=== PATIENT | female | born 1980 | race Caucasian/White ===

== ENCOUNTER 2017-01-20 12:46 | Outpatient (CLI) | payer OTHER ==
[~2017-01-20] VITALS: Ht 152.4 cm; Wt 95.0 kg
[2017-01-20 13:09] VITALS: BP 129/66; PULSE 87
[2017-01-20] MEDS ORDERED: PRENAT PO (13:10)
[2017-01-20 13:35] LABS: ADD UMIC YES; URINE BILIRUBIN (Dip) NEGATIVE (NEGATIVE); URINE BLOOD (Dip) TRACE (NEGATIVE); URINE COLOR LT. YELLOW (YELLOW); URINE GLUCOSE (Dip) NEGATIVE (NEGATIVE); URINE KETONES (Dip) NEGATIVE (NEGATIVE); URINE LEUKOCYTE ESTERASE (Dip) TRACE (NEGATIVE); URINE NITRITE (Dip) NEGATIVE (NEGATIVE); URINE TOTAL PROTEIN (Dip) NEGATIVE (NEGATIVE); URINE UROBILINOGEN (Dip) 0.2 E.U./dL (0.1-1.0)
[2017-01-20 13:45] LABS: BACTERIA,URINE MODERATE
[2017-01-20] MEDS ORDERED: BETAMET NA PHOS/AC(6 MG/ML) 5ML INJ IM ONE (14:00)
--- NOTE | 2017-01-20 14:55 | RADRPT ---
AMENDMENT: 01/20/2017 2:55:29 PM Dariusz Garcia M.D PROCEDURE: US OB. CLINICAL INDICATION: labor TECHNIQUE: Multiple sonographic images of the pelvis were obtained. The images were reviewed on a PACS workstation. COMPARISON: No prior studies are available for comparison. FINDINGS: There is a single live intrauterine . cardiac activity is identified at a rate of 13 3 beats per minute. presentation is cephalic. Placenta is anterior grade II. There is a questionable nuchal cord . Biophysical profile score is as follows: Breathing 2 Movements 2 Tone 2 Fluid volume 2 Amniotic fluid index = 8.3 cm Total biophysical profile score = 8/8 IMPRESSION: Biophysical profile score = 8/8 Questionable nuchal cord RPTAT: HH Physician Florecita Date Time Electronically viewed and signed by Physician Florecita on 01/20/2017 14:55 /
--- NOTE | 2017-01-20 15:20 | QN ---
Documentation Comment 36-year-old with IUP at 36 weeks presented with complaint of vaginal pressure. She feels some irregular uterine contractions and [place]. She denies any vaginal bleeding, decreased movement. Patient reports history of delivery 2 at 36 weeks in prior pregnancies. She was noted to be 1 cm dilated/80-3. Intact in vertex presentation Physical examination: General appearance: Alert and oriented 4 patient does not appear to be in any acute distress. Abdomen: Soft, gravid, fundal height consistent with gestational age. No rebound tenderness, no guarding no rigidity no evidence of acute abdomen. NST: Category 1. Some irregular contractions seen Observation after 1-2 hours did not show any cervical change. MENDMENT: 01/20/2017 2:55:29 PM Dariusz Garcia M.D PROCEDURE: US OB. CLINICAL INDICATION: labor TECHNIQUE: Multiple sonographic images of the pelvis were obtained. The images were reviewed on a PACS workstation. COMPARISON: No prior studies are available for comparison. FINDINGS: There is a single live intrauterine . cardiac activity is identified at a rate of 133 beats per minute. presentation is cephalic. Placenta is anterior grade II. There is a questionable nuchal cord. Biophysical profile score is as follows: Breathing 2 Movements 2 Tone 2 Fluid volume 2 Amniotic fluid index = 8.3 cm Total biophysical profile score = 8/8 IMPRESSION: Biophysical profile score = 8/8 Questionable nuchal cord RPTAT: Assessment: IUP at 36 weeks False labor pain No cervical change during observation History of labor at 36 weeks 2 Due to increased risk of labor in current as well at less than 37 weeks discussed with the patient about steroid Desires to proceed Received first dose today Adequate hydration discussed Discharge home today Follow-up with triage tomorrow for the second dose of steroid Strict labor precaution and kick count discussed Follow-up with OB clinic in 2-3 days or sooner as needed any other complaint discussed Return to triage if she has worsening of abdominal pain, leaking of fluid, vaginal bleeding decreased movement , or any other concerns DESIRE TALLEY MD January 20, 2017 15:20
--- NOTE | 2017-01-20 15:33 | TRIAGE ---
OB Triage Datetime Report Generated by CPN: 01/20/2017 15:32 Datetime: 01/20/2017 15:08 Vaginal Exam Dilatation (cms): 1.0 Effacement (%): 80 Station: -3 Exam By: S. HERI RN Datetime: 01/20/2017 13:54 Labor Evaluation Frequency: 9-11 Monitor Mode: External Duration (sec)2399: 50-70 Pattern: Normal: <= 5 Contractions in 10 Minutes Resting Tone [place]: Relaxed Heart Rate FHR Baseline Rate: 135 Monitor Mode: External US Variability: Moderate 6-25 bpm Accelerations: 10X10 Decelerations: None Category: Category I Pain Assessment Pain Scale: 5 Pain Presence: Intermittent Pain Type: Pressure Pain Goal: 3 Pain Relief Measures: Comfort Measures Datetime: 01/20/2017 13:42 Stage of : OB Triage Datetime: 01/20/2017 13:05 Stage of : OB Triage Assessment Type: Triage Maternal Assessment Level of Consciousness: Fully Conscious DTR's/Clonus: DTRs 2+; No Clonus Headache: Denies Blurred Vision: No Respiratory Effort: Unlabored; Regular Rhythm; Equal Expansion Breath Sounds, Left: Clear and Equal Breath Sounds, Right: Clear and Equal Nausea/Vomiting: Denies RUQ Epigastric Pain: Denies Facial Edema: None Temperature Route: Axillary Fall Risk Assessment History of Falling: (0) No Secondary Diagnosis: (0) No Ambulatory Aid: (0) Bedrest/Nurse Assist IV Therapy: (0) No Gait: (0) Normal/Bedrest/Immobile Mental Status: (0) Oriented to Own Ability Fall Score: 0 Fall Risk Score Definition: No Risk: No action required Labor Evaluation Frequency: 0 Monitor Mode: External Resting Tone [place]: Relaxed Heart Rate FHR Baseline Rate: 130 Monitor Mode: External US Variability: Moderate 6-25 bpm Decelerations: None Category: Category II Pain Assessment Pain Scale: 5 Pain Presence: Intermittent Pain Type: Pressure Pain Location: Perineum Pain Goal: 3 Pain Relief Measures: Comfort Measures Datetime: 01/20/2017 13:04 EGA: 36.0 Datetime: 01/20/2017 13:00 Time of Arrival: 01/20/2017 12:40 Arrived By: Ambulatory Arrived From: Home Chief Complaint: C/O VAG PRESSURE, DENIES LEAKING OR BLEEDING Movement: Present Contractions: Denies/Absent Rupture of Membranes: Denies Vaginal Discharge: Present Recent Sexual Intercouse: Denies Abdominal Trauma: Not Applicable Time Provider Notified: 01/20/2017 15:16 Provider Notified: Dr. Smith Initial Plan: MONITOR,
== END 2017-01-20 15:35 | disposition home or self-care (01) ==
LOC: OBT 12:46 → L-D 12:48 → OBT 15:35
PROVIDERS: ATTEND Obstetrics & Gynecology
DX: O60.03 Preterm labor without delivery, third trimester (principal); O09.523 Supervision of elderly multigravida, third trimester; Z3A.36 36 weeks gestation of pregnancy
CPT/HCPCS: 76818; 81001; 96372; J0702; Z7500; G0463

== ENCOUNTER 2017-01-21 13:56 | Outpatient (CLI) | payer OTHER ==
[~2017-01-21] VITALS: Ht 152.4 cm; Wt 96.0 kg
[~2017-01-21 13:56] MED LIST: PRENAT PO
[2017-01-21 14:01] VITALS: Ht 152.4 cm; Wt 96.0 kg
[2017-01-21 14:03] VITALS: BP 128/60
[2017-01-21] MEDS ORDERED: BETAMET NA PHOS/AC(6 MG/ML) 5ML INJ IM ONE (14:30)
--- NOTE | 2017-01-21 14:46 | RADRPT ---
PROCEDURE: Biophysical profile CLINICAL INDICATION: distress TECHNIQUE: Color and horton-scale ultrasound images of an intrauterine gestation were obtained. COMPARISON: January 20, 2017 FINDINGS: A single live intrauterine gestation is identified in is not 5 position with an estimated hear t rate of 129 beats per minute. The placenta is located anterior. The cervix is obscured by head s hadows. No evidence of abruption identified. DEISY is 4.3 cm. movement 2/2. tone 2/2. breathing movement 2/2. Qualitative AFV 0/2 Total biophysical profile 01/28 IMPRESSION: 01/28 biophysical profile. Oligohydramnios is noted with an DEISY of 4.3 cm. RPTAT: AA .Charli Malhotra MD, Date Time Electronically viewed and signed by .Charli Malhotra MD, on 01/21/2017 14:45 .P/
[2017-01-21] MEDS: LACTATED RINGER'S 1,000 ML IV PRN ×2 (15:28→16:33)
--- NOTE | 2017-01-21 17:43 | RADRPT ---
PROCEDURE: US OB. CLINICAL INDICATION: Low DEISY TECHNIQUE: Transabdominal views of the pelvis are available for review. COMPARISON: Biophysical profile study from the same date FINDINGS: There is a single intrauterine gestation in a vertex position. The heart rate is present at 128 bpm. The placenta is anterior. There is no evidence of placenta previa or a placental abruption. The DEISY measures 6.3 cm. RPTAT: AA IMPRESSION: Oligohydramnios with an DEISY of 6.3 cm. Physician Jay Date Time Electronically viewed and signed by Damian Alvarenga Physician on 01/21/2017 17:43 RA/
--- NOTE | 2017-01-22 09:37 | CONS ---
Date/Time of Note Date/Time of Note DATE: 01/22/17 TIME: 09:06 Consultation Date/Type/Reason Admit Date/Time January OB triage consult: Initial Consult Date This patient is a36 years old G 5, P 4 with EDC of 01/22/2017 which makes her 36 1/7 weeks . She was seen yesterday in triage for oligohydramnios and occasional contractions. She was given a dose of Beta Methasone and discharged home with instruction to do kick count drink plenty of fluid. Today on ultrasound study her DEISY was 4.3 cm, with BPP 6/8. She also indicated that she fell down at home yesterday, but without any injury. On exam her vital signs were WNL.: BP: 128/60 ,puls: 83, Respiration: 16, and temperature 98.0. she had very scattered contractions, FHT reactive, with good variability, and no decels. Current Medications Medications (Trade) Dose Ordered Sig/Quynh Route PRN Reason Start Time Stop Time Status Last Admin Dose Admin Betamethasone Acet/Betameth SodPhos 12 mg 12 mg ONCE ONCE IM 01/21/17 14:30 01/21/17 14:31 DC 01/21/17 14:48 12 MG Lactated Ringer's (Lr) 1,000 ml @ 1,000 mls/hr Q1H PRN IV IV HYDRATION OLIGOHYDRAMNIOS 01/21/17 15:30 01/21/17 18:39 DC 01/21/17 16:33 1,000 MLS/HR 24 HR Interval Summary Constitutional: No chills, No diaphoresis, No disoriented, No febrile, No improved, No no complaints, No other, No poor po, No requiring IVF, No requiring O2 Detailed Summary Eyes: No discharge, No no complaints, No other, No pain, No redness, No visual change ENT: No bleeding, No congestion, No discharge, No dysphagia, No no complaints, No other, No pain, No sore throat Respiratory: No cough, No no complaints, No other, No pain, No pleuritic pain, No shortness of breath, No sputum, No wheezing Cardiovascular: No chest pain, No edema, No lightheadedness, No no complaints, No orthopenea, No other, No palpitations, No paroxysmal nocturnal dyspnea Gastrointestinal: No blood, No constipation, No decreased appetite, No diarrhea , No flatus, No nausea, No no complaints, No other, No pain, No passing stool, No vomiting Genitourinary: other, No bleeding, No discharge, No dysuria, No flank pain, No hematuria, No no complaints Musculoskeletal: No back pain, No bone/joint pain, No neck pain, No no complaints, No other, No restricted range of motion, No swelling Skin: No bruising, No erythema, No laceration, No no complaints, No other, No pruritis, No rash, No skin lesions Neurologic: No confusion, No dizziness, No focal-weakness, No headache, No no complaints, No other, No seizure, No syncope Additional Comments Due to low DEISY ,patient was hydrated and monitored for 3 more hours .On repeat ultrasound study her DEISY was 6.3 with BPP of 8/8. Due to lack any contraction and satisfactory heart tracing , patient was discharged home withe the following instructions: -Rest home ad return to her Ob clinic soon -Kick count -Drink plenty of fluid for adequate hydration -Return to OB Triage if: frequent contractions Low kick count vaginal bleeding or any other sign of labor Follow up on her DEISY in 2 days. Exam/Review of Systems Vital Signs Vitals Vital Signs Date Time Temp Pulse Resp B/P Pulse Ox O2 Delivery O2 Flow Rate FiO2 01/21/17 14:03 98.0 128/60 Room Air Intake and Output 01/21/17 01/21/17 01/22/17 15:00 23:00 07:00 Intake Total 2000 ml Balance 2000 ml TONYA BENNETT MD Jan 22, 2017 09:21
== END 2017-01-21 18:25 | disposition home or self-care (01) ==
LOC: OBT 13:56 → L-D 13:57 → OBT 18:25
PROVIDERS: ATTEND Obstetrics & Gynecology
DX: O41.03X0 Oligohydramnios, third trimester, not applicable or unspecified (principal); O09.523 Supervision of elderly multigravida, third trimester; Z3A.36 36 weeks gestation of pregnancy
CPT/HCPCS: 76815; 76818; 96360; 96361; 96372; J0702; Z7500; G0463

== ENCOUNTER 2017-01-22 13:25 | Outpatient (CLI) | payer OTHER ==
[~2017-01-22] VITALS: Ht 152.4 cm; Wt 96.0 kg
[2017-01-22 13:46] VITALS: BP 117/67; PULSE 90; RESP 18
--- NOTE | 2017-01-22 14:16 | RADRPT ---
PROCEDURE: US OB biophysical profile. CLINICAL INDICATION: evaluation TECHNIQUE: Multiple sonographic images of the pelvis were obtained. The images were reviewed on a PACS workstation. COMPARISON: Obstetrical ultrasound from 01/21/2017 FINDINGS: There is a single viable intrauterine gestation. Cardiac activity is present with 131 beats per min [place]. There is a vertex presentation. The placenta is anterior. There is no evidence of placental abruption. There is a low - normal amount of amniotic fluid with an DEISY = 8.0 cm. Biophysical profile: movement 2/2 tone 2/2. breathing 2/2 DEISY 2/2 Total 03/30 RPTAT: AA . IMPRESSION: Normal biophysical profile. Low - normal DEISY of 8.0 cm, compared with an DEISY of 6.3 cm yesterday. Physician Jay Date Time Electronically viewed and signed by Physician Jay on 01/22/2017 14:15 /
--- NOTE | 2017-01-22 15:49 | TRIAGE ---
OB Triage Datetime Report Generated by CPN: 01/22/2017 15:49 Datetime: 01/22/2017 14:22 Frequency: IRREGULAR Monitor Mode: External Duration (sec)2399: 45-60 Quality: Mild Pattern: Normal: <= 5 Contractions in 10 Minutes Resting Tone [place]: Relaxed FHR Baseline Rate: 135 Monitor Mode: External US FHR Baseline Changes: No Baseline Change Variability: Absent - Undetectable Accelerations: 15X15 Decelerations: None Category: Category I Pain Presence: None/Denies Datetime: 01/22/2017 14:00 Frequency: OCCASIONAL Monitor Mode: External Duration (sec)2399: 60-65 Quality: Mild Pattern: Normal: <= 5 Contractions in 10 Minutes Resting Tone [place]: Relaxed FHR Baseline Rate: 135 Monitor Mode: External US FHR Baseline Changes: No Baseline Change Variability: Moderate 6-25 bpm Accelerations: 15X15 Decelerations: None Category: Category I Datetime: 01/22/2017 13:40 Assessment Type: Admission Assessment Level of Consciousness: Fully Conscious DTR's/Clonus: DTRs 2+; No Clonus Headache: Denies Blurred Vision: No Respiratory Effort: Unlabored; Regular Rhythm; Equal Expansion Breath Sounds, Left: Clear and Equal Breath Sounds, Right: Clear and Equal Nausea/Vomiting: Denies RUQ Epigastric Pain: Denies Lower Extremities Edema: None Degree: None Upper Extremities Edema: None Degree: None Facial Edema: None History of Falling: (0) No Secondary Diagnosis: (0) No Ambulatory Aid: (0) Bedrest/Nurse Assist IV Therapy: (0) No Gait: (0) Normal/Bedrest/Immobile Mental Status: (0) Oriented to Own Ability Fall Score: 0 Fall Risk Score Definition: No Risk: No action required Datetime: 01/22/2017 13:37 Time of Arrival: 01/22/2017 13:37 EGA: 36.2 Arrived By: Ambulatory Arrived From: Home Chief Complaint: TO FOLLOW UP DEISY AND BPP Movement: Present Contractions: Denies/Absent Rupture of Membranes: Denies Vaginal Bleeding: None Vaginal Discharge: Denies Recent Sexual Intercouse: Denies Abdominal Trauma: Not Applicable Patient Complaints: Other Initial Plan: EFM APPLIED Datetime: 01/21/2017 17:42 Monitor Mode: External US Datetime: 01/21/2017 17:05 Stage of : OB Triage Frequency: 0 Monitor Mode: External Pattern: Normal: <= 5 Contractions in 10 Minutes Resting Tone [place]: Relaxed FHR Baseline Rate: 130 Monitor Mode: External US Decelerations: None Category: Category I Datetime: 01/21/2017 16:21 Stage of : OB Triage Frequency: 0 Monitor Mode: External Pattern: Normal: <= 5 Contractions in 10 Minutes Resting Tone [place]: Relaxed FHR Baseline Rate: 125 Monitor Mode: External US Variability: Moderate 6-25 bpm Accelerations: 15X15 Decelerations: None Category: Category I Pain Presence: None/Denies Pain Type: N/A Datetime: 01/21/2017 14:59 Frequency: 0 Monitor Mode: External Pattern: Normal: <= 5 Contractions in 10 Minutes Resting Tone [place]: Relaxed FHR Baseline Rate: 125 Monitor Mode: External US Variability: Moderate 6-25 bpm Accelerations: 15X15 Decelerations: None Category: Category I Pain Presence: None/Denies Pain Type: N/A Datetime: 01/21/2017 14:06 Stage of : OB Triage Assessment Type: Triage Level of Consciousness: Fully Conscious DTR's/Clonus: DTRs 2+; No Clonus Headache: Denies Blurred Vision: No Respiratory Effort: Unlabored; Regular Rhythm; Equal Expansion Breath Sounds, Left: Clear and Equal Breath Sounds, Right: Clear and Equal Nausea/Vomiting: Denies RUQ Epigastric Pain: Denies Lower Extremities Edema: None Degree: None Upper Extremities Edema: None Degree: None Facial Edema: None Temperature Route: Oral History of Falling: (0) No Secondary Diagnosis: (0) No Ambulatory Aid: (0) Bedrest/Nurse Assist IV Therapy: (0) No Gait: (0) Normal/Bedrest/Immobile Mental Status: (0) Oriented to Own Ability Fall Score: 0 Fall Risk Score Definition: No Risk: No action required Monitor Mode: External FHR Baseline Rate: 130 Monitor Mode: External US Variability: Moderate 6-25 bpm Accelerations: 15X15 Decelerations: None Category: Category I Pain Scale: 0 Pain Presence: None/Denies Pain Type: N/A Datetime: 01/21/2017 14:04 Time of Arrival: 01/21/2017 13:52 EGA: 36.1 Arrived By: Ambulatory Arrived From: Home Chief Complaint: HERE FOR 2ND BETAMETHASONE SHOT Movement: Decreased Contractions: Denies/Absent Rupture of Membranes: Denies Vaginal Bleeding: None Vaginal Discharge: Denies Recent Sexual Intercouse: Denies Abdominal Trauma: Not Applicable Patient Complaints: None Time Provider Notified: 01/21/2017 14:21 Provider Notified: DR. FONTAINE Initial Plan: [id number], CALL MD Datetime: 01/20/2017 13:05 Fall Score: 0 Fall Risk Score Definition: No Risk: No action required Datetime: 01/20/2017 13:04 EGA: 36.0 Datetime: 01/20/2017 13:00 Patient Complaints: Dizziness
--- NOTE | 2017-03-11 19:05 | PN ---
Triage Information Date/Time 01/22/17 Weeks of Gestation 36 : 6 Para: 4 Assessment/Plan low monalisa MINESH FONTAINE MD Mar 11, 2017 19:04
== END 2017-01-22 15:35 | disposition home or self-care (01) ==
LOC: OBT 13:25 → L-D 13:25 → OBT 15:35
PROVIDERS: ATTEND Obstetrics & Gynecology
DX: O41.93X0 Disorder of amniotic fluid and membranes, unspecified, third trimester, not applicable or unspecified (principal); Z3A.36 36 weeks gestation of pregnancy
CPT/HCPCS: 76818; Z7500; G0463

== ENCOUNTER 2017-01-24 11:49 | Outpatient (CLI) | payer OTHER ==
[~2017-01-24] VITALS: Ht 152.4 cm; Wt 96.1 kg
[2017-01-24 11:57] VITALS: Ht 152.4 cm; Wt 96.1 kg
[2017-01-24 11:58] VITALS: BP 111/58; PULSE 105; RESP 16
--- NOTE | 2017-01-24 12:32 | RADRPT ---
PROCEDURE: OB ultrasound limited for biophysical profile . CLINICAL INDICATION: Low DEISY TECHNIQUE: Multiple sonographic images of the pelvis were obtained. Transabdominal view of the gr avid uterus are available for review. The images were reviewed on a PACS workstation. COMPARISON: 01/22/2017 FINDINGS: breathing movement = 2/2 tone = 2/2 motion = 2/2 Amniotic fluid volume = 2/2 DEISY = 9.4 cm Cephalic presentation. Heart rate 146 beats per minute. Anterior grade 1 placenta. IMPRESSION: 1. Single viable intrauterine gestation. 2. Biophysical profile = 8/8. 3. DEISY = 9.4 cm. RPTAT: QQ .Dariusz Haider MD, MD Date Time Electronically viewed and signed by .Dariuzs Haider MD, on 01/24/2017 12:32 .L/
--- NOTE | 2017-01-24 12:50 | TRIAGE ---
OB Triage Datetime Report Generated by CPN: 01/24/2017 12:50 Datetime: 01/24/2017 12:45 Labor Evaluation Pattern: Normal: <= 5 Contractions in 10 Minutes Resting Tone [place]: Relaxed Contraction Comments: no uc Heart Rate FHR Baseline Rate: 145 Monitor Mode: External US Variability: Moderate 6-25 bpm Accelerations: 15X15 Decelerations: None Category: Category I Comments: reactive nst Pain Assessment Pain Presence: None/Denies Pain Type: N/A Datetime: 01/24/2017 11:57 Assessment Type: Triage Maternal Assessment Level of Consciousness: Fully Conscious DTR's/Clonus: DTRs 2+; No Clonus Headache: Denies Blurred Vision: No Respiratory Effort: Unlabored; Regular Rhythm; Equal Expansion Breath Sounds, Left: Clear and Equal Breath Sounds, Right: Clear and Equal Nausea/Vomiting: Denies RUQ Epigastric Pain: Denies Facial Edema: None Fall Risk Assessment History of Falling: (0) No Secondary Diagnosis: (0) No Ambulatory Aid: (0) Bedrest/Nurse Assist IV Therapy: (0) No Gait: (0) Normal/Bedrest/Immobile Mental Status: (0) Oriented to Own Ability Fall Score: 0 Fall Risk Score Definition: No Risk: No action required Datetime: 01/24/2017 11:55 Time of Arrival: 01/24/2017 11:45 EGA: 36.4 Arrived By: Ambulatory Arrived From: Home Chief Complaint: pt. came to hospital for follow up nst, bpp Movement: Present Contractions: Irregular Rupture of Membranes: Denies Vaginal Bleeding: None Vaginal Discharge: Denies Recent Sexual Intercouse: Denies Abdominal Trauma: Not Applicable Patient Complaints: None Time Provider Notified: 01/24/2017 12:00 Provider Notified: Initial Plan: nst, bpp Datetime: 01/22/2017 13:40 Fall Score: 0 Fall Risk Score Definition: No Risk: No action required Datetime: 01/22/2017 13:37 EGA: 36.2 Datetime: 01/21/2017 14:06 Fall Score: 0 Fall Risk Score Definition: No Risk: No action required Datetime: 01/21/2017 14:04 EGA: 36.1 Datetime: 01/20/2017 13:05 Fall Score: 0 Fall Risk Score Definition: No Risk: No action required Datetime: 01/20/2017 13:04 EGA: 36.0
--- NOTE | 2017-03-11 19:08 | PN ---
Triage Information Date/Time 01/24/17 Weeks of Gestation 37 : 6 Para: 4 Assessment/Plan low DEISY MINESH FONTAINE MD Mar 11, 2017 19:07
== END 2017-01-24 13:00 | disposition home or self-care (01) ==
LOC: OBT 11:49 → L-D 11:49 → OBT 13:00
PROVIDERS: ATTEND Obstetrics & Gynecology
DX: O41.93X0 Disorder of amniotic fluid and membranes, unspecified, third trimester, not applicable or unspecified (principal); Z3A.37 37 weeks gestation of pregnancy
CPT/HCPCS: 76818; Z7500; G0463

== ENCOUNTER 2017-01-26 13:09 | Outpatient (CLI) | payer OTHER ==
[~2017-01-26] VITALS: Ht 152.4 cm; Wt 96.0 kg
[2017-01-26 13:21] VITALS: BP 108/66; PULSE 76; RESP 18; Ht 152.4 cm; Wt 96.0 kg
--- NOTE | 2017-01-26 14:10 | RADRPT ---
PROCEDURE: US OB biophysical profile. CLINICAL INDICATION: Contractions TECHNIQUE: Multiple sonographic images of the pelvis were obtained. The images were reviewed on a PACS workstation. COMPARISON: Obstetrical ultrasound from 01/24/2017 FINDINGS: There is a single viable intrauterine gestation. Cardiac activity is present with 141 beats per min [place]. There is a vertex presentation. The placenta is anterior. There is no evidence of placental abruption. There is a normal amount of amniotic fluid with an DEISY = 9.5 cm. Biophysical profile: movement 2/2 tone 2/2. breathing 2/2 DEISY 2/2 Total 03/30 RPTAT: AA . IMPRESSION: Normal biophysical profile. Physician Jay Date Time Electronically viewed and signed by Physician Jay on 01/26/2017 14:10 /
--- NOTE | 2017-01-26 14:35 | TRIAGE ---
OB Triage Datetime Report Generated by CPN: 01/26/2017 14:35 Datetime: 01/26/2017 14:23 Vaginal Exam Dilatation (cms): 1.0 Effacement (%): 0 Station: -4 Exam By: DR FOROOHAR Vaginal Bleeding: None Cervix, Consistency: Moderate Cervix, Position: Posterior Datetime: 01/26/2017 13:27 Nitrazine: Negative Datetime: 01/26/2017 13:19 Assessment Type: Triage Maternal Assessment Level of Consciousness: Fully Conscious DTR's/Clonus: DTRs 2+; No Clonus Headache: Denies Blurred Vision: No Respiratory Effort: Unlabored; Regular Rhythm; Equal Expansion Breath Sounds, Left: Clear and Equal Breath Sounds, Right: Clear and Equal Nausea/Vomiting: Denies RUQ Epigastric Pain: Denies Lower Extremities Edema: None Degree: None Upper Extremities Edema: None Degree: None Facial Edema: None Fall Risk Assessment History of Falling: (0) No Secondary Diagnosis: (0) No Ambulatory Aid: (0) Bedrest/Nurse Assist IV Therapy: (0) No Gait: (0) Normal/Bedrest/Immobile Mental Status: (0) Oriented to Own Ability Fall Score: 0 Fall Risk Score Definition: No Risk: No action required Datetime: 01/26/2017 13:15 Time of Arrival: 01/26/2017 13:00 EGA: 36.6 Arrived By: Ambulatory Arrived From: Home Chief Complaint: PT HERE FOR F/U FOR LOW DEISY Movement: Present Contractions: Denies/Absent Rupture of Membranes: Unsure Vaginal Bleeding: None Vaginal Discharge: Denies Recent Sexual Intercouse: Denies Abdominal Trauma: Not Applicable Patient Complaints: None Time Provider Notified: 01/26/2017 13:30 Provider Notified: ZHEN Initial Plan: ROM PLUS, BPP Datetime: 01/26/2017 13:12 Labor Evaluation Monitor Mode: External Heart Rate Monitor Mode: External US Datetime: 01/24/2017 11:57 Fall Score: 0 Fall Risk Score Definition: No Risk: No action required Datetime: 01/24/2017 11:55 EGA: 36.4 Datetime: 01/22/2017 13:40 Fall Score: 0 Fall Risk Score Definition: No Risk: No action required Datetime: 01/22/2017 13:37 EGA: 36.2 Datetime: 01/21/2017 14:06 Fall Score: 0 Fall Risk Score Definition: No Risk: No action required Datetime: 01/21/2017 14:04 EGA: 36.1 Datetime: 01/20/2017 13:05 Fall Score: 0 Fall Risk Score Definition: No Risk: No action required Datetime: 01/20/2017 13:04 EGA: 36.0
--- NOTE | 2017-01-26 14:38 | CONS ---
Date/Time of Note Date/Time of Note DATE: 01/26/17 TIME: 14:33 Consultation Date/Type/Reason Admit Date/Time January 26, 2007 Follow-up OB triage consult Initial Consult Date This patient is 36 years old 6 para 4 1 with estimated date of confinement of 02/18/2016 which makes her 36 weeks and 6 days now she is being followed in the OB triage clinic due to low amniotic fluid index she came back to the clinic today for the same reason on examination her vital signs are stable blood pressure 108/66, pulse rate 76, respiration 18, and temperature 97.8 She has occasional contractions. heart tone is normal with fairly good variability no deceleration On pelvic examination the cervix is basically closed about 1 cm with 50% effacement and -2 station with intact membranes Reason for Consultation Laboratory Tests Test 01/26/17 13:30 Membranes Rupture NEGATIVE 24 HR Interval Summary Free Text/Dictation She mentioned the possible rupture of membrane however the ROM plus was negative and no evidence of amniotic fluid in the vaginal canal On ultrasound study a single viable intrauterine gestation was reported. heart tone activity of 141 in vertex presentation placenta was anterior no evidence of abruption physical profile was performed was 03/30 with amniotic fluid index of 9.5 With improved amniotic fluid index patient was discharged home to be followed in the clinic and return to triage area for further monitoring of amniotic fluid index in few days Exam/Review of Systems Vital Signs Vitals Vital Signs Date Time Temp Pulse Resp B/P Pulse Ox O2 Delivery O2 Flow Rate FiO2 01/26/17 13:21 97.8 76 18 108/66 Room Air Results Results 24 hrs Laboratory Tests Test 01/26/17 13:30 Membranes Rupture NEGATIVE TONYA BENNETT MD Jan 26, 2017 14:38
== END 2017-01-26 14:30 | disposition home or self-care (01) ==
LOC: L-D 13:09 → OBT 13:09
PROVIDERS: ATTEND Obstetrics & Gynecology
DX: O41.03X0 Oligohydramnios, third trimester, not applicable or unspecified (principal); O62.9 Abnormality of forces of labor, unspecified; O09.523 Supervision of elderly multigravida, third trimester; Z3A.36 36 weeks gestation of pregnancy
CPT/HCPCS: 76818; 84112; Z7500; G0463

== ENCOUNTER 2017-01-28 11:00 | Outpatient (CLI) | payer OTHER ==
[~2017-01-28] VITALS: Ht 152.4 cm; Wt 96.0 kg
--- NOTE | 2017-01-28 11:55 | RADRPT ---
PROCEDURE: US OB biophysical profile. CLINICAL INDICATION: evaluation TECHNIQUE: Multiple sonographic images of the pelvis were obtained. The images were reviewed on a PACS workstation. COMPARISON: Biophysical profile from 01/26/2017 FINDINGS: There is a single viable intrauterine gestation. Cardiac activity is present with 134 beats per min [place]. There is a vertex presentation. The placenta is anterior. There is no evidence of placental abruption. There is a normal amount of amniotic fluid with an DEISY = 9.1 cm. Biophysical profile: movement 2/2 tone 2/2. breathing 2/2 DEISY 2/2 Total 03/30 RPTAT: AA . IMPRESSION: Normal biophysical profile. Physician Jay Date Time Electronically viewed and signed by Physician Jay on 01/28/2017 11:54 /
[2017-01-28 12:15] VITALS: BP 115/58; PULSE 85; RESP 20
--- NOTE | 2017-01-28 13:07 | TRIAGE ---
OB Triage Datetime Report Generated by CPN: 01/28/2017 13:06 Datetime: 01/28/2017 12:07 Stage of : OB Triage Maternal Assessment Level of Consciousness: Fully Conscious DTR's/Clonus: DTRs 2+ Headache: Denies Nausea/Vomiting: Denies RUQ Epigastric Pain: Denies Resting Tone [place]: Relaxed Contraction Comments: monalisa 9.1, bpp 8/8, waiting for Laborist to see pt, Laborist coming after he m akes rounds in 3W, pt told u/s results Pain Presence: Intermittent Pain Type: Cramping Pain Location: Abdomen Pain Relief Measures: Comfort Measures Vaginal Exam Membrane Status: Intact Datetime: 01/28/2017 11:39 Maternal Assessment Level of Consciousness: Fully Conscious DTR's/Clonus: DTRs 2+ Headache: Denies Blurred Vision: No Nausea/Vomiting: Denies RUQ Epigastric Pain: Denies Facial Edema: None Labor Evaluation Frequency: 10-15 Monitor Mode: External Duration (sec)2399: 10-20 Quality: Mild Resting Tone [place]: Relaxed Heart Rate FHR Baseline Rate: 135 Monitor Mode: External US Variability: Moderate 6-25 bpm Accelerations: 15X15 Category: Category I Pain Presence: Intermittent Pain Type: Cramping Pain Location: Abdomen Pain Relief Measures: Comfort Measures Pain Assessment Comments: "i've had kelechi prieto for the last [address] checked me on last visit and said I was closed" Vaginal Exam Membrane Status: Intact Datetime: 01/28/2017 11:11 Maternal Assessment Level of Consciousness: Fully Conscious DTR's/Clonus: DTRs 2+ Headache: Denies Blurred Vision: No Nausea/Vomiting: Denies RUQ Epigastric Pain: Denies Facial Edema: None Labor Evaluation Frequency: 0 Monitor Mode: External Duration (sec)2399: 0 Resting Tone [place]: Relaxed Heart Rate FHR Baseline Rate: 130 Monitor Mode: External US Variability: Moderate 6-25 bpm Accelerations: 15X15 Category: Category I Pain Assessment Pain Scale: 4 Pain Presence: Intermittent Pain Type: Cramping Pain Location: Abdomen Pain Goal: 4 Pain Relief Measures: Comfort Measures Pain Assessment Comments: "false labor" for last 2 weeks" Vaginal Exam Membrane Status: Intact Datetime: 01/28/2017 11:05 Stage of : OB Triage Assessment Type: Triage Maternal Assessment Level of Consciousness: Fully Conscious DTR's/Clonus: DTRs 2+; No Clonus Headache: Denies Blurred Vision: No Respiratory Effort: Unlabored; Regular Rhythm; Equal Expansion Breath Sounds, Left: Clear and Equal Breath Sounds, Right: Clear and Equal Nausea/Vomiting: Denies RUQ Epigastric Pain: Denies Lower Extremities Edema: None Upper Extremities Edema: None Facial Edema: None Temperature Route: Axillary Fall Risk Assessment History of Falling: (0) No Secondary Diagnosis: (0) No Ambulatory Aid: (0) Bedrest/Nurse Assist IV Therapy: (0) No Gait: (0) Normal/Bedrest/Immobile Mental Status: (0) Oriented to Own Ability Fall Score: 0 Fall Risk Score Definition: No Risk: No action required Datetime: 01/28/2017 11:00 Time of Arrival: 01/28/2017 10:55 EGA: 37.1 Arrived By: Ambulatory Arrived From: Home Chief Complaint: follow up monalisa Movement: Present Contractions: Denies/Absent Rupture of Membranes: Denies Vaginal Bleeding: None Vaginal Discharge: Denies Recent Sexual Intercouse: Denies Abdominal Trauma: Not Applicable Patient Complaints: None Time Provider Notified: 01/28/2017 11:30 Provider Notified: faroohar Initial Plan: reactive nst, bpp, monalisa, talk and see Laborist Datetime: 01/26/2017 14:23 Maternal Assessment Level of Consciousness: Fully Conscious DTR's/Clonus: DTRs 1+ Headache: Denies Blurred Vision: No Nausea/Vomiting: Denies RUQ Epigastric Pain: Denies Facial Edema: None Labor Evaluation Frequency: IRR Monitor Mode: External Duration (sec)2399: 40-70 Quality: Mild Pattern: Normal: <= 5 Contractions in 10 Minutes Resting Tone [place]: Relaxed Heart Rate FHR Baseline Rate: 135 Monitor Mode: External US Variability: Moderate 6-25 bpm Accelerations: 15X15 Decelerations: None Category: Category I Pain Assessment Pain Scale: 0 Pain Presence: None/Denies Pain Type: N/A Pain Goal: 3 Vaginal Exam Membrane Status: Intact Datetime: 01/26/2017 13:53 Maternal Assessment Level of Consciousness: Fully Conscious DTR's/Clonus: DTRs 1+ Headache: Denies Nausea/Vomiting: Denies RUQ Epigastric Pain: Denies Labor Evaluation Frequency: IRR Monitor Mode: External Duration (sec)2399: 40-70 Quality: Mild Pattern: Normal: <= 5 Contractions in 10 Minutes Resting Tone [place]: Relaxed Heart Rate FHR Baseline Rate: 135 Monitor Mode: External US Variability: Moderate 6-25 bpm Accelerations: 15X15 Decelerations: None Pain Assessment Pain Scale: 0 Pain Presence: None/Denies Pain Type: N/A Pain Goal: 3 Vaginal Exam Membrane Status: Intact Vaginal Bleeding: None Cervix, Consistency: Moderate Cervix, Position: Posterior Datetime: 01/26/2017 13:19 Fall Score: 0 Fall Risk Score Definition: No Risk: No action required Datetime: 01/26/2017 13:15 EGA: 36.6 Datetime: 01/24/2017 11:57 Fall Score: 0 Fall Risk Score Definition: No Risk: No action required Datetime: 01/24/2017 11:55 EGA: 36.4 Datetime: 01/22/2017 13:40 Fall Score: 0 Fall Risk Score Definition: No Risk: No action required Datetime: 01/22/2017 13:37 EGA: 36.2 Datetime: 01/21/2017 14:06 Fall Score: 0 Fall Risk Score Definition: No Risk: No action required Datetime: 01/21/2017 14:04 EGA: 36.1 Datetime: 01/20/2017 13:05 Fall Score: 0 Fall Risk Score Definition: No Risk: No action required Datetime: 01/20/2017 13:04 EGA: 36.0
--- NOTE | 2017-01-28 13:12 | CONS ---
Date/Time of Note Date/Time of Note DATE: 01/28/17 TIME: 13:09 Consultation Date/Type/Reason Admit Date/Time January 28, 2007 Triage consult Initial Consult Date This patient is a 36 years old 6 para 4 1 living 4 with EDC of 02/17/2017 which makes her 37 weeks and 1 day She is being followed for low amniotic fluid index which originally was 7 few weeks ago. today she is here for further evaluation and ultrasound study . On examination she does not have any contraction abdomen is soft fundus is soft heart tone is normal with fairly good variability occasional acceleration no decelerations her vital signs are normal blood pressure 115/58, pulse rate 85, respiration 20 , and a temperature 98 point. 24 HR Interval Summary Free Text/Dictation On ultrasound study her DEISY came back 9.1 today with biophysical profile of 8.8 Constitutional: No chills, No diaphoresis, No disoriented, No febrile, No improved, No no complaints, No other, No poor po, No requiring IVF, No requiring O2 Detailed Summary Additional Comments Due to fairly satisfactory DEISY and biophysical profile she was discharged home to be followed in the clinic and return to perinatology for follow-up on her End of dictation Exam/Review of Systems Vital Signs Vitals Vital Signs Date Time Temp Pulse Resp B/P Pulse Ox O2 Delivery O2 Flow Rate FiO2 01/28/17 12:15 98.2 85 20 115/58 Room Air OTNYA BENNETT MD Jan 28, 2017 13:12
== END 2017-01-28 13:00 | disposition home or self-care (01) ==
LOC: OBT 11:00 → L-D 11:00 → OBT 13:00
PROVIDERS: ATTEND Obstetrics & Gynecology
DX: O41.03X0 Oligohydramnios, third trimester, not applicable or unspecified (principal); O09.523 Supervision of elderly multigravida, third trimester; Z3A.37 37 weeks gestation of pregnancy
CPT/HCPCS: 76818

== ENCOUNTER 2017-02-02 09:42 | Inpatient (IN) | payer OTHER ==
[~2017-02-02] VITALS: Ht 152.4 cm; Wt 97.2 kg
[2017-02-02 09:49] VITALS: Ht 152.4 cm; Wt 97.2 kg
[2017-02-02 10:05] VITALS: BP 122/59; PULSE 122; RESP 18
--- NOTE | 2017-02-02 10:44 | RADRPT ---
PROCEDURE: Limited OB ultrasound CLINICAL INDICATION: Low DEISY TECHNIQUE: Sonographic evaluation to assess the DEISY was performed. Transabdominal imaging of the gravid uterus was performed. COMPARISON: No prior exam is available for comparison. FINDINGS: There is a single live intrauterine with a heart rate of 139 bpm. position is cephalic. The placenta is anterior. The DEISY measures 5.4 cm. IMPRESSION: Oligohydramnios. The DEISY measures 5.4 cm. RPTAT: HH .Elizabeth Young MD, MD Date Time Electronically viewed and signed by .Elizabeth Young MD, on 02/02/2017 10:43 .G/
--- NOTE | 2017-02-02 12:14 | TRIAGE ---
OB Triage Datetime Report Generated by CPN: 02/02/2017 12:13 Datetime: 02/02/2017 11:37 Vaginal Exam Dilatation (cms): 1.0 Effacement (%): 30 Station: -4 Exam By: DR. FOROOHAR Datetime: 02/02/2017 10:50 Pain Assessment Pain Scale: 4 Pain Presence: Intermittent Pain Type: Contraction Pain Location: Abdomen Pain Relief Measures: Comfort Measures Datetime: 02/02/2017 10:44 Labor Evaluation Frequency: IRREG Monitor Mode: External Duration (sec)2399: 50-140 Pattern: Normal: <= 5 Contractions in 10 Minutes Resting Tone [place]: Relaxed Heart Rate FHR Baseline Rate: 140 Monitor Mode: External US Variability: Moderate 6-25 bpm Accelerations: 15X15 Decelerations: None Category: Category I Datetime: 02/02/2017 10:01 Pain Assessment Pain Scale: 4 Pain Presence: Intermittent Pain Type: Pressure Pain Location: Abdomen Pain Relief Measures: Comfort Measures Datetime: 02/02/2017 09:58 Assessment Type: Admission Assessment Maternal Assessment Level of Consciousness: Fully Conscious DTR's/Clonus: DTRs 2+; No Clonus Headache: Denies Blurred Vision: No Respiratory Effort: Unlabored; Regular Rhythm; Equal Expansion Breath Sounds, Left: Clear and Equal Breath Sounds, Right: Clear and Equal Nausea/Vomiting: Denies RUQ Epigastric Pain: Denies Lower Extremities Edema: None Degree: None Upper Extremities Edema: None Degree: None Facial Edema: None Fall Risk Assessment History of Falling: (0) No Secondary Diagnosis: (0) No Ambulatory Aid: (0) Bedrest/Nurse Assist IV Therapy: (0) No Gait: (0) Normal/Bedrest/Immobile Mental Status: (0) Oriented to Own Ability Fall Score: 0 Fall Risk Score Definition: No Risk: No action required Datetime: 02/02/2017 09:56 Time of Arrival: 02/02/2017 09:40 EGA: 37.6 Arrived By: Ambulatory Arrived From: Home Chief Complaint: PT. CAME FOR FOLLOW UP DEISY Movement: Present Contractions: Denies/Absent Rupture of Membranes: Denies Vaginal Bleeding: None Vaginal Discharge: Denies Recent Sexual Intercouse: Denies Abdominal Trauma: Not Applicable Patient Complaints: None Time Provider Notified: 02/02/2017 10:56 Provider Notified: [facility] Initial Plan: TOCO/ US, DEISY-5.3 Datetime: 01/28/2017 11:05 Fall Score: 0 Fall Risk Score Definition: No Risk: No action required Datetime: 01/28/2017 11:00 EGA: 37.1 Datetime: 01/26/2017 13:19 Fall Score: 0 Fall Risk Score Definition: No Risk: No action required Datetime: 01/26/2017 13:15 EGA: 36.6 Datetime: 01/24/2017 11:57 Fall Score: 0 Fall Risk Score Definition: No Risk: No action required Datetime: 01/24/2017 11:55 EGA: 36.4 Datetime: 01/22/2017 13:40 Fall Score: 0 Fall Risk Score Definition: No Risk: No action required Datetime: 01/22/2017 13:37 EGA: 36.2 Datetime: 01/21/2017 14:06 Fall Score: 0 Fall Risk Score Definition: No Risk: No action required Datetime: 01/21/2017 14:04 EGA: 36.1 Datetime: 01/20/2017 13:05 Fall Score: 0 Fall Risk Score Definition: No Risk: No action required Datetime: 01/20/2017 13:04 EGA: 36.0
[2017-02-02] MEDS ORDERED: LIDOCAINE 1% (MPF) 30 ML INJ INJ PRN (12:30)
[2017-02-02] MEDS ORDERED: IBUPROFEN 600 MG TAB PO PRN (12:30)
[2017-02-02] MEDS ORDERED: LACTATED RINGER'S 1,000 ML IV PRN (12:30)
[2017-02-02] MEDS ORDERED: METHYLERGONOVINE 0.2 MG INJ IM PRN (12:30)
[2017-02-02] MEDS ORDERED: CARBOPROST 250 MCG INJ IM PRN (12:30)
[2017-02-02] MEDS ORDERED: OXYTOCIN 30 UNITS/LR 500 ML IV SCH ×2 (12:30)
[2017-02-02] MEDS ORDERED: MISOPROSTOL 200 MCG TAB PR PRN (12:30)
[2017-02-02] MEDS ORDERED: OXYTOCIN 30 UNITS/LR 500 ML IV PRN (12:30)
--- NOTE | 2017-02-02 13:11 | CONS ---
Date/Time of Note Date/Time of Note DATE: 02/02/17 TIME: 12:54 Consultation Date/Type/Reason Admit Date/Time 10/05/2006 Triage consult Reason for Consultation This patient is a 36 years old 6 para 4 living 1 with EDC of which makes her 37 weeks and 6 days now she was having low DEISY during the past few visits she came to the hospital complaining of a lower abdominal pain slight spotting originally she came in to be evaluated in triage for low DEISY On examination she is a well-developed well-nourished lady at term. Has occasional contraction heart tone is normal with good variability occasional acceleration no decelerations Her contractions very scattered every 4-5 minutes Her general vital signs are normal with blood pressure 122/39, pulse rate 120, respiration 18, and temperature of 98.9. On pelvic examination her cervix is basically closed is less than 1 fingertip about 50% effaced head is high membrane is intact Current Medications Medications (Trade) Dose Ordered Sig/Quynh Route PRN Reason Start Time Stop Time Status Last Admin Dose Admin Lactated Ringer's (Lr) 1,000 ml @ 125 mls/hr Q8H IV 02/02/17 12:28 Butorphanol Tartrate (Stadol) 2 mg Q2H PRN IV PAIN 02/02/17 12:30 Lidocaine 30 ml 30 ml ONCE PRN INJ EPISIOTOMY/TEARING 02/02/17 12:30 Oxytocin/Lactated Ringer's 500 ml @ 125 mls/hr ONCE -MAY REPEAT X1 IV 02/02/17 12:30 Oxytocin/Lactated Ringer's 500 ml @ 125 mls/hr ONCE IV 02/02/17 12:30 Ibuprofen 600 mg 600 mg ONCE PRN PO Mild Pain (Pain Score 1-3) 02/02/17 12:30 Lactated Ringer's 1,000 ml @ 2,000 mls/hr Q30M PRN IV PRE-EPIDURAL BOLUS 02/02/17 12:30 Oxytocin/Lactated Ringer's 500 ml @ 0 mls/hr ONCE PRN IV For Hemorrhage Management 02/02/17 12:30 Methylergonovine Maleate (Methergine) 0.2 mg ONCE PRN IM VAGINAL BLEEDING 02/02/17 12:30 Carboprost Tromethamine (Hemabate) 250 mcg ONCE PRN IM VAGINAL BLEEDING 02/02/17 12:30 Misoprostol (Cytotec) 1,000 mcg ONCE PRN [place] VAGINAL BLEEDING 02/02/17 12:30 Constitutional: No chills, No diaphoresis, No disoriented, No febrile, No improved, No no complaints, No other, No poor po, No requiring IVF, No requiring O2 Eyes: No discharge, No no complaints, No other, No pain, No redness, No visual change ENT: No bleeding, No congestion, No discharge, No dysphagia, No no complaints, No other, No pain, No sore throat Respiratory: No cough, No no complaints, No other, No pain, No pleuritic pain, No shortness of breath, No sputum, No wheezing Cardiovascular: No chest pain, No edema, No lightheadedness, No no complaints, No orthopenea, No other, No palpitations, No paroxysmal nocturnal dyspnea Gastrointestinal: No blood, No constipation, No decreased appetite, No diarrhea , No flatus, No nausea, No no complaints, No other, No pain, No passing stool, No vomiting Genitourinary: other (Pelvic examination as I mentioned cervix was less than 1 fingertip 50% effaced intact membranes), No bleeding, No discharge, No dysuria, No flank pain, No hematuria, No no complaints Musculoskeletal: No back pain, No bone/joint pain, No neck pain, No no complaints, No other, No restricted range of motion, No swelling Skin: No bruising, No erythema, No laceration, No no complaints, No other, No pruritis, No rash, No skin lesions Neurologic: No confusion, No dizziness, No focal-weakness, No headache, No no complaints, No other, No seizure, No syncope Endocrine: No dry skin, No no complaints, No other, No polydypsia, No polyuria , No temp intolerance Additional Comments We did an ultrasound study the report is a single live intrauterine with heart rate of 139 bpm and cephalic presentation with placenta anterior her DEISY was reported 5.4 considering the fact that her previous DEISY was 9.1 ,4 days ago and the fact that the she was having contraction and being at 37 weeks and 6 days which is closed with her Dr. Naranjo was informed and she will be admitted in the hospital for delivery Social History Smoking Status: Never smoker Exam/Review of Systems Vital Signs Vitals Vital Signs Date Time Temp Pulse Resp B/P Pulse Ox O2 Delivery O2 Flow Rate FiO2 02/02/17 10:05 98.9 122 18 122/59 Room Air Medications Medications Current Medications Lactated Ringer's (Lr) 1,000 ml @ 125 mls/hr Q8H IV ; Start 02/02/17 at 12:28 Butorphanol Tartrate (Stadol) 2 mg Q2H PRN IV PAIN; Start 02/02/17 at 12:30 Lidocaine 30 ml 30 ml ONCE PRN INJ EPISIOTOMY/TEARING; Start 02/02/17 at 12:30 Oxytocin/Lactated Ringer's 500 ml @ 125 mls/hr ONCE IV ; Start 02/02/17 at 12: 30 Ibuprofen 600 mg 600 mg ONCE PRN PO Mild Pain (Pain Score 1-3); Start 02/02/17 at 12:30 Lactated Ringer's 1,000 ml @ 2,000 mls/hr Q30M PRN IV PRE-EPIDURAL BOLUS; Start 02/02/17 at 12:30 Oxytocin/Lactated Ringer's 500 ml @ 0 mls/hr ONCE PRN IV For Hemorrhage Management; Start 02/02/17 at 12:30 Methylergonovine Maleate (Methergine) 0.2 mg ONCE PRN IM VAGINAL BLEEDING; Start 02/02/17 at 12:30 Carboprost Tromethamine (Hemabate) 250 mcg ONCE PRN IM VAGINAL BLEEDING; Start 02/02/17 at 12:30 Misoprostol (Cytotec) 1,000 mcg ONCE PRN [place] VAGINAL BLEEDING; Start 02/02/17 at 12:30 TONYA BENNETT MD Feb 02, 2017 13:04
[2017-02-02] MEDS: LACTATED RINGER'S 1,000 ML IV SCH ×2 (14:34→17:09)
[2017-02-02 14:37] VITALS: BP 117/67; PULSE 80; RESP 18
[2017-02-02 15:08] LABS: ADD SCAN DIFF NO
[2017-02-02 15:10] LABS: BASOPHILS % 0.2 % (0.0-2.0); EOSINOPHILS # 0.1 10^3/ul (0.0-0.5); EOSINOPHILS % 1.7 % (0.0-7.0); HEMATOCRIT 35.7 % (37.0-47.0); LYMPHOCYTES # 1.5 10^3/ul (0.8-2.9); LYMPHOCYTES % 18.2 % (15.0-51.0); MEAN CORPUSCULAR HEMOGLOBIN 29.3 pg (29.0-33.0); MEAN CORPUSCULAR HGB CONC 33.6 g/dl (32.0-37.0); MEAN CORPUSCULAR VOLUME 87.3 fl (82.0-101.0); MEAN PLATELET VOLUME 10.8 fl (7.4-10.4); MONOCYTE # 0.8 10^3/ul (0.3-0.9); MONOCYTES % 9.4 % (0.0-11.0); NEUTROPHIL # 5.7 10^3/ul (1.6-7.5); NEUTROPHILS % 69.6 % (39.0-77.0); PLATELET COUNT 225 10^3/UL (140-415); RED BLOOD COUNT 4.09 10^6/ul (4.20-5.40); RED CELL DISTRIBUTION WIDTH 13.2 % (11.5-14.5); WHITE BLOOD COUNT 8.2 10^3/ul (4.8-10.8)
[2017-02-02 15:27] LABS: INR 0.94; PROTIME 12.6 Sec (12.2-14.2)
[2017-02-02 15:28] LABS: PARTIAL THROMBOPLASTIN TIME 26.6 Sec (25.0-35.0)
[2017-02-02] MEDS ORDERED: DINOPROSTONE 10 MG VAG SUPP VAG ONE (15:30)
--- NOTE | 2017-02-02 17:22 | HP ---
Date/Time of Note Date/Time of Note DATE: 02/02/17 TIME: 17:06 OB - History Hx of Present Free Text/Dictation This is a 36 years old female 6 para 4 EDC February 17, 2017 makes her 37 weeks and 6 days admitted to [facility] for induction of labor recommended by the perinatologist due to oligohydramnios, low DEISY however patient started spontaneous mild contraction pelvic examination on admission cervix 1 cm dilated 30% effaced vertex is -3 station requires Cervidil augmentation. This patient has been under the care of the [facility] and her is not complicated with gestational diabetes -induced hypertension except she is known with a history of asthma but has not been using inhaler due to no asthmatic attack Her past history for normal vaginal delivery no other hospitalization for any other medical or surgical condition Allergies denies allergy to any known medication Social habits denies a smoking or drinking or using of illicit drug Review of system within normal Physical examination Temperature 98.7 pulse 83 respiration 18 blood pressure 108/60 Head ears nose and throat negative Neck supple no thyromegaly Lungs clear to P&A Heart normal sinus rhythm no murmur Abdomen fundal height 37 cm from symphysis pubis heart rate category 1 contraction 4-7 minutes mild to moderate Pelvic examination Cervix 1 cm dilated 30% effaced vertex at -2 -3 station Impression intrauterine approximately 38 weeks, low DEISY delivery recommended by the perinatologist Past Family/Social History * Past Medical, Surgical, Family and Obstetric Histories reviewed from chart. OB Admission Exam Vital Signs Vital Signs Vital Signs Date Time Temp Pulse Resp B/P Pulse Ox O2 Delivery O2 Flow Rate FiO2 02/02/17 14:37 97.8 80 18 117/67 Room Air Physical Exam HEENT: WNL Lungs: Clear, Equal Abdomen: WNL Extremities: Normal Reflexes: Normal Cervical Dilatation: 1cm Effacement: Other (30%) Station: -3 Membranes: Intact Heart Rate: 130's Accelerations: Accelerations Present Decelerations: No Decelerations Varibility: Moderate Contractions on Admission: 6-10 Minutes Apart Intensity: Mild Last 72 hours Lab Results CBC & BMP 02/02/17 14:30 OB Assessment/Plan Reason for admission: induction of labor, other MINESH FONTAINE MD Feb 02, 2017 17:20
[2017-02-03] MEDS: LACTATED RINGER'S 1,000 ML IV SCH ×4 (00:25→23:56)
[2017-02-03] MEDS ORDERED: DINOPROSTONE 10 MG VAG SUPP VAG ONE (10:30)
[2017-02-03] MEDS: OXYTOCIN 30 UNITS/LR 500 ML IV SCH (23:58)
[2017-02-04] MEDS: BUTORPHANOL 2 MG INJ IV PRN ×2 (02:44→23:00)
[2017-02-04] MEDS: LACTATED RINGER'S 1,000 ML IV SCH ×3 (07:49→22:53)
[2017-02-04] MEDS ORDERED: ALBUTEROL 18 GM INHALER INH PRN (22:30)
[2017-02-05] MEDS: OXYTOCIN 30 UNITS/LR 500 ML IV SCH ×3 (01:43→22:23)
[2017-02-05] MEDS: LACTATED RINGER'S 1,000 ML IV SCH ×4 (05:47→14:31)
[2017-02-05] MEDS: BUTORPHANOL 2 MG INJ IV PRN (07:56)
[2017-02-05] MEDS ORDERED: MINERAL OIL LIGHT 10 ML VIAL TOP PRN (10:00)
[2017-02-05] MEDS ORDERED: FENTAnyl 2MCG/ML-ROPIV 0.2% 100 ML ONE (11:37)
[2017-02-05] MEDS ORDERED: ONDANSETRON 4 MG INJ IV PRN ×2 (12:00→18:30)
[2017-02-05] MEDS ORDERED: NALOXONE (0.4 MG/ML) INJ IV PRN (12:00)
[2017-02-05] MEDS ORDERED: DIPHENHYDRAMINE 50 MG INJ IV PRN (12:00)
[2017-02-05] MEDS ORDERED: FENTAnyl 2MCG/ML-ROPIV 0.2% 100 ML BAG EPI SCH (12:00)
--- NOTE | 2017-02-05 17:29 | LDN ---
Date/Time of Note Date/Time of Note DATE: 02/05/17 TIME: 17:23 Delivery Summary Normal spontaneous vaginal delivery of a baby girl from OA position shoulders delivered without any difficulty rest of the baby's body followed placenta spontaneous expulsion inspected complete patient sustained no perineal vaginal laceration estimated blood loss 250 cc Weeks of Gestation Normal spontaneous vaginal delivery of a baby girl from OA position shoulders delivered without any difficulty rest of the baby's body followed nasal oropharyngeal suction was performed baby handed to the team for immediate attention placenta spontaneous expulsion inspected complete blood loss 250 Placenta Delivered: Spontaneously Meconium: none Episiotomy: No Sponge & Needle done & correct: Yes All needle counts correct: Yes Any foreign bodies felt in the: No Problems: Infant Delivery Information Sex Infant Sex: female Apgars 1 Minute: 9 5 Minute: 9 Suctioning Nose & mouth suctioned at cristy: Yes Delee suction performed: No Umbilical Cord Umbilical cord with: 3 Vessels Cord presentations: no nuchal cord Cord Blood was obtained: Yes MINESH FONTAINE MD Feb 05, 2017 17:29
[2017-02-05 18:15] VITALS: BP 120/53; PULSE 84; RESP 18
[2017-02-05] MEDS ORDERED: OXYCODONE/ASPIRIN (4.88/325) TAB PO PRN ×2 (18:30)
[2017-02-05] MEDS ORDERED: ACETAMINOPHEN/CODEINE #3 TAB PO PRN ×2 (18:30)
[2017-02-05] MEDS ORDERED: WITCH HAZEL/GLYCERIN PAD PR PRN (18:30)
[2017-02-05] MEDS ORDERED: BENZOCAINE 20% 56 ML SPRAY TOP PRN (18:30)
[2017-02-05] MEDS ORDERED: DIBUCAINE 1% 30 GM OINT PR PRN (18:30)
[2017-02-05] MEDS ORDERED: ACETAMINOPHEN 325 MG TAB PO PRN (18:30)
[2017-02-05] MEDS ORDERED: LANOLIN 7 GM TUBE TOP PRN (18:30)
[2017-02-05] MEDS: IBUPROFEN 600 MG TAB PO SCH ×2 (19:06→23:32)
[2017-02-05 19:20] VITALS: BP 103/59; PULSE 87; RESP 19
[2017-02-05] MEDS: SENNA/DOCUSATE NA (8.6MG/50MG) TAB PO SCH (21:26)
[2017-02-06] VITALS: BP 110/64; PULSE 76; RESP 20
[2017-02-06 04:00] VITALS: BP 105/67; PULSE 66; RESP 20
[2017-02-06] MEDS: IBUPROFEN 600 MG TAB PO SCH ×4 (05:36→23:50)
[2017-02-06 07:48] LABS: ADD SCAN DIFF NO
[2017-02-06 07:54] LABS: BASOPHILS % 0.2 % (0.0-2.0); EOSINOPHILS # 0.1 10^3/ul (0.0-0.5); EOSINOPHILS % 1.1 % (0.0-7.0); HEMATOCRIT 32.4 % (37.0-47.0); LYMPHOCYTES # 2.2 10^3/ul (0.8-2.9); LYMPHOCYTES % 18.6 % (15.0-51.0); MEAN CORPUSCULAR HEMOGLOBIN 29.8 pg (29.0-33.0); MEAN CORPUSCULAR VOLUME 87.8 fl (82.0-101.0); MONOCYTE # 1.1 10^3/ul (0.3-0.9); MONOCYTES % 9.4 % (0.0-11.0); NEUTROPHIL # 8.1 10^3/ul (1.6-7.5); NEUTROPHILS % 70.3 % (39.0-77.0); PLATELET COUNT 176 10^3/UL (140-415); RED BLOOD COUNT 3.69 10^6/ul (4.20-5.40); RED CELL DISTRIBUTION WIDTH 13.9 % (11.5-14.5); WHITE BLOOD COUNT 11.6 10^3/ul (4.8-10.8)
[2017-02-06 08:15] VITALS: BP 109/61; PULSE 66; RESP 18
[2017-02-06] MEDS: SENNA/DOCUSATE NA (8.6MG/50MG) TAB PO SCH ×2 (09:44→20:56)
--- NOTE | 2017-02-06 11:12 | PN ---
Date/Time of Note Date/Time of Note DATE: 02/06/17 TIME: 11:11 OB Subjective Subjective Subjective Post normal vaginal delivery day 1 Afebrile vital signs stable abdomen soft uterus firm lochia normal extremity ambulation encouraged MINESH FONTAINE MD Feb 06, 2017 11:12
[2017-02-06 12:15] VITALS: BP 104/56; PULSE 68; RESP 20
[2017-02-06 16:15] VITALS: BP 99/53; PULSE 70; RESP 20
[2017-02-06 20:10] VITALS: BP 111/74; PULSE 67; RESP 18
[2017-02-07 03:50] VITALS: BP 107/56; PULSE 67; RESP 18
[2017-02-07] MEDS: IBUPROFEN 600 MG TAB PO SCH ×2 (06:25→11:47)
[2017-02-07] MEDS: SENNA/DOCUSATE NA (8.6MG/50MG) TAB PO SCH (08:18)
[2017-02-07 08:47] VITALS: BP 122/73; PULSE 65; RESP 19
[2017-02-07] MEDS ORDERED: MEASLES,MUMPS,RUBELLA VACCINE INJ SC* ONE (09:00)
== END 2017-02-07 16:16 | disposition home or self-care (01) | DRG 775 ==
LOC: OBT 09:42 → L-D 09:43 → OBT 12:08 → L-D 12:08 → PP1 02-05 18:09
PROVIDERS: ADMIT Obstetrics & Gynecology; ATTEND Obstetrics & Gynecology
PROC: 10E0XZZ Delivery of Products of Conception, External Approach (ICD-10-PCS; principal; 2017-02-05)
DX: O80 Encounter for full-term uncomplicated delivery (principal); Z37.0 Single live birth; Z3A.37 37 weeks gestation of pregnancy
CPT/HCPCS: 62319; 76816; 85025; 85610; 85730; 86592; 86900; 86901; G0463; J0595; J2590; J3010; J7120